=== PATIENT | female | born 1990 | race Caucasian/White ===

== ENCOUNTER 2017-11-10 07:27 | Day surgery (SDC) | payer BC ==
[2017-11-09 12:15] VITALS: BMI 20.1
[2017-11-10 08:12] LABS: BHCG - Serum Negative (NEGATIVE); Pregs Control Background? CLEAR/WHITE (CLR/WHITE); Pregs Control Bar Appear? YES (CONTROL BAR)
[2017-11-10] MEDS ORDERED: Fentanyl 100 MCG/2 ML VIAL ONE (09:28)
[2017-11-10] MEDS ORDERED: Meperidine HCl/PF 25 MG/ML VIAL ONE (09:29)
[2017-11-10] MEDS ORDERED: Hydrocodone-Acetamin 15 ML UDCUP ONE (11:42)
[2017-11-10] MEDS ORDERED: Ondansetron HCl/PF 4 MG/2 ML Vial ONE (14:45)
[2017-11-10] MEDS ORDERED: Succinylcholine Chloride 20 MG/ML 10 ml SYRINGE FS ONE (14:45)
[2017-11-10] MEDS ORDERED: Dexamethasone 20 MG/5 ML VIAL ONE (14:45)
[2017-11-10] MEDS ORDERED: Lidocaine 1% PF 5 ML VIAL ONE (14:45)
[2017-11-10] MEDS ORDERED: PROPOFOL 200 MG/20 ML VIAL ONE (14:45)
--- NOTE | 2017-11-11 11:54 | OP ---
PREOPERATIVE DIAGNOSES: 1. Chronic adenotonsillitis. 2. Adenotonsillar hypertrophy. 3. Snoring. POSTOPERATIVE DIAGNOSES: 1. Chronic adenotonsillitis. 2. Adenotonsillar hypertrophy. 3. Snoring. PROCEDURE: Tonsillectomy and adenoidectomy. SURGEON: Jose Hernandez M.D. ESTIMATED BLOOD LOSS: 0 mL. COMPLICATIONS: None. ANESTHESIA: GETA. PROCEDURE IN DETAIL: After consent was obtained, the patient was identified, brought to the operating room, and placed on the operating table in the supine position. General endotracheal anesthesia and intravenous access was obtained and we proceeded with positioning the patient for oropharyngeal surge ry. Oropharyngeal exposure was obtained with a Sophia-Handy mouth gag after a head drape was placed an d secured with a towel clip. The Sophia-Handy mouth gag was then suspended from the Romero tray and ely shoshone frank elevation was achieved with a red rubber catheter. The right tonsil was addressed first. We used a curved Allis to grasp the tonsil and retract it medially as an anterior pillar incision was made. T he retrotonsillar fascial plane was then established and blunt dissection was performed with the suct ion cautery. Blood vessels were anticipated, identified, and cauterized as they were encountered. Ult imately, dissection was carried to the posterior tonsillar pillar mucosa which was incised hemostatic ally, as well as the base of tongue connection. The tonsil was then passed off as a specimen and blee ding points within the tonsillar bed were cauterized under direct visualization. We subsequently turn ed our attention to the contralateral side, where using a similar technique, a near identical procedu re was performed. Again, the tonsil was grasped and retracted medially with a curved Allis. The retro tonsillar fascial plane was established and while the anterior pillar was retracted medially, the hem ostatic blunt dissection of the tonsil with a suction cautery was performed with blood vessels antici pated, identified, and cauterized as they were encountered. Again, dissection continued to the base o f tongue and posterior tonsillar pillar mucosa which was incised in a hemostatic fashion. The tonsill ar beds were then carefully inspected and bleeding points were identified and cauterized with a sucti on cautery. After this portion of the procedure, hemostasis was completely obtained. Under direct macho ror visualization, we visualized the adenoid pad. Under direct mirror visualization, we removed the b ulk of the adenoid tissue with the adenoid curette. We then packed the nasopharynx for an appropriate period of time with Richard-Synephrine saturated tonsillar sponges. After a period of observation, we re moved the pack. Under indirect mirror visualization, we obtained hemostasis and vaporization of resid ual adenoid tissue with electrocautery. The patient's oral cavity was copiously irrigated with iced s amy and subsequently suctioned. After completion of the procedure, the nasal cavity and oropharynx were irrigated and suctioned as were the gastric contents. The patient was then awakened and transfer red to the recovery room where the patient remained in stable condition prior to discharge to [facility]
== END 2017-11-10 12:00 | disposition home or self-care (01) ==
LOC: SDC 07:27
PROVIDERS: ATTEND Otolaryngology Plastic Surgery within the Head & Neck
PROC: 0C5PXZZ Destruction of Tonsils, External Approach (ICD-10-PCS; principal; 2017-11-10)
PROC: 0C5QXZZ Destruction of Adenoids, External Approach (ICD-10-PCS; principal; 2017-11-10)
DX: J35.03 Chronic tonsillitis and adenoiditis (principal); J45.909 Unspecified asthma, uncomplicated; I10 Essential (primary) hypertension; H93.13 Tinnitus, bilateral; H91.93 Unspecified hearing loss, bilateral; Z91.040 Latex allergy status; Z87.891 Personal history of nicotine dependence; Z88.2 Allergy status to sulfonamides; Z88.7 Allergy status to serum and vaccine; Z88.8 Allergy status to other drugs, medicaments and biological substances; Z79.899 Other long term (current) drug therapy
CPT/HCPCS: 84703; 85014; 88304; J1100; J2001; J2175; J2405; J2704; J3010